=== PATIENT | female | born 1965 | race Two or more races ===

== ENCOUNTER 2023-07-09 18:27 | Emergency (ER) | payer SELFPAY ==
[~2023-07-09] VITALS: Ht 170.2 cm; Wt 57.2 kg
[2023-07-09 18:47] VITALS: BP 112/69; PULSE 85; RESP 18; TEMP 97.3; O2SAT 98
[2023-07-09] MEDS ORDERED: LIDOCAINE 1% 500 MG/ 50 ML VIAL INJ ONE (18:55)
[2023-07-09] MEDS ORDERED: LIDOCAINE MPF 1% 5 ML ONE (19:03)
[2023-07-09] MEDS ORDERED: AMOX-999 PO (19:20)
[2023-07-09 21:15] VITALS: BP 114/72; PULSE 87; RESP 18; TEMP 97.6; O2SAT 98
== END 2023-07-09 19:45 | disposition home or self-care (01) ==
LOC: MED 18:27
DX: S60.451A Superficial foreign body of left index finger, initial encounter (principal); W26.8XXA Contact with other sharp object(s), not elsewhere classified, initial encounter; Y93.89 Activity, other specified; Y92.89 Other specified places as the place of occurrence of the external cause; Y99.8 Other external cause status
CPT/HCPCS: 73130; 73140; 99284; J2001; Q0092; 10120; 99285